=== PATIENT | female | born 1965 | race Caucasian/White ===

== ENCOUNTER 2018-04-17 07:44 | Emergency (ER) | payer OTHER ==
[~2018-04-17] VITALS: Ht 165.1 cm; Wt 68.0 kg
[~2018-04-17 07:44] MED LIST: ADULT LOW DOSE81 MG PO; NOHOMEMEDICATIONS
[2018-04-17] MEDS ORDERED: ADVIL200 M1 PO (07:53)
[2018-04-17 08:27] LABS: APTT 23.3 Seconds (25.0-31.3); PROTIME 9.7 Seconds (9.20-11.50)
[2018-04-17 08:32] LABS: ANION GAP 8 mmol/L (7-16); BUN 13 mg/dL (7-18); CALCIUM 8.2 mg/dL (8.5-10.1); CHLORIDE 106 mmol/L (98-107); CO2 26 mmol/L (21-32); CREATININE 0.8 mg/dL (0.6-1.3); GLUCOSE 92 mg/dL (70-99); POTASSIUM 3.3 mmol/L (3.5-5.1); SODIUM 140 mmol/L (136-145)
[2018-04-17 08:51] LABS: ABSOLUTE EOSINOPHILS 0.1 thou/uL (0.0-0.7); ABSOLUTE LYMPHOCYTES 2.6 thou/uL (0.8-5.3); ABSOLUTE MONOCYTES 0.5 thou/uL (0.0-1.2); ABSOLUTE NEUTROPHILS 5.5 thou/uL (1.6-8.1); BASOPHILS 0.3 %; EOSINOPHILS 0.7 %; HEMATOCRIT 41.1 % (37.0-47.0); HEMOGLOBIN 13.8 gm/dL (12.0-15.0); LYMPHOCYTES 30.1 %; MCH 33.1 pg (26.0-34.0); MCHC 33.5 g/dL (28.0-37.0); MCV 99.1 fL (80.0-100.0); MPV 8.5 fl. (7.2-11.1); NUCLEATED RBCS 0 /100WBC; PLATELET COUNT* 296 thou/uL (150-400); POLYS 62.9 %; RBC 4.15 mil/uL (4.20-5.00); RDW-CV 13.8 % (10.5-14.5); WBC 8.7 thou/uL (4.0-11.0)
[2018-04-17 08:52] LABS: ALBUMIN 3.2 g/dL (3.4-5.0); ALKALINE PHOSPHATASE 81 U/L (46-116); CK-MB MASS < 0.5 ng/mL (<0.5-3.6); LIPASE 174 U/L (73-393); NT-PRO BRAIN NAT PEPTIDE 133 pg/mL (<300); SGOT 13 U/L (15-37); SGPT 15 U/L (30-65); TOTAL BILIRUBIN 0.4 mg/dL (<0.1-1.0); TOTAL PROTEIN 7.1 g/dL (6.4-8.2); TROPONIN-I LEVEL <0.06 ng/mL (<0.06)
[2018-04-17 16:32] VITALS: BP 127/72
--- NOTE | 2018-04-18 09:37 | EKG ---
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
--- NOTE | 2018-04-19 16:15 | EXE ---
[place] [address] STRESS ECHOCARDIOGRAM Name: SANTIAGOTHEO Room: [facility]#: [id number] Admission: 04/17/18 Attend Phys: Discharge: 04/17/18 Date of : 61 Date of Service: 04/19/18 1614 Report #: [id number] THIS REPORT FOR: //name// APPROVED REPORT Study performed: 04/17/2018 15:32:34 Exam: Stress Echocardiogram Indication: Chest pain Patient Location: ER Stress Nurse: Crissy Suarez RN Supervising Physician: Elpidio Leonard MD Ht: 5 ft 5 in HR: 69 bpm BP: 132/79 mmHg Rhythm: NSR Medical History Cardiac Risk Factors: Smoking Procedure The patient underwent an Exercise Stress Test using the Esteban Protocol. Blood pressure, heart rate, and EKG were monitored. An Echocardiogram was performed by computer hardware technician in four stages in quad fashion. At peak stress, four selected images were obtained and placed side by side with resting images for comparison. Echo Enhancing Agent Indication: Endocardial border delineation Agent(s) / Amount(s) Used: Optison 8 cc Stress Test Details Stress Test: Exercise stress testing was performed using a Esteban protocol. HR Resting HR: 69 bpm Max Heart Rate (APMHR): 166 bpm Max HR Achieved: 167 bpm Target HR (85% APMHR): 141 bpm % of APMHR: 100 Recovery HR: 96 bpm HR response to stress: Normal HR response to stress BP Resting BP: 132/79 mmHg Max BP: 171/72 mmHg Recovery BP: 126/81 [place] [address] STRESS ECHOCARDIOGRAM Name: THEO SANTIAGO Room: [facility]#: [id number] Admission: 04/17/18 Attend Phys: Discharge: 04/17/18 Date of : 61 Date of Service: 04/19/18 1614 Report #: [id number] ECG Resting ECG: Sinus Rhythm Stress ECG: Sinus Rhythm ST Change: Normal Recovery ECG: Sinus Rhythm Recovery ST Change: Normal Clinical Reason for Termination: Maximal effort Stress Symptoms: Leg Fatigue Exercise duration: 6 min 19 sec Highest Stage Achieved: Stage 3: 3.4 mph at 14% grade. Exercise capacity: 7.53 METs Stress ECG Conclusion negative ecg Pre-Stress Echo The resting Echocardiogram showed normal left ventricular contractility with an estimated Ejection Fraction of about 50-55%. Post-Stress Echo 1. LV chamber size decreases. 2. LV contractility increases. 3. No new wall motion abnormality visualized. Conclusion Clinical Response: Non-ischemic Exercise Capacity: Below Average Stress ECG Response: Non-ischemic Stress Echo Images: Non-ischemic Negative stress echo at the level of exercise achieved, reduced functional capacity decreased the sensitivity of this study. Other Information Technically limited study due to poor endocardial definition. <Conclusion> [place] [address] STRESS ECHOCARDIOGRAM Name: THEO SANTIAGO Room: [facility]#: [id number] Admission: 04/17/18 Attend Phys: Discharge: 04/17/18 Date of : 61 Date of Service: 04/19/181613 Report #: [id number] Negative stress echo at the level of exercise achieved, reduced functional capacity decreased the sensitivity of this study. <ELECTRONICALLY SIGNED> By: Jt Joseph MD, FACC 04/19/181613 13 13 Jt Joseph MD, FACC /INF
== END 2018-04-17 16:32 | disposition home or self-care (01) ==
LOC: M.ERS 07:44
PROVIDERS: Emergency Medicine
DX: R07.89 Other chest pain (principal); Z90.49 Acquired absence of other specified parts of digestive tract; F17.210 Nicotine dependence, cigarettes, uncomplicated; Z88.2 Allergy status to sulfonamides; Z88.8 Allergy status to other drugs, medicaments and biological substances

== ENCOUNTER → 2018-07-06 | Outpatient (CLI) | payer OTHER ==
[~2018-07-06] MED LIST changes: +ADVIL200 M1 PO
--- NOTE | 2018-07-12 07:43 | PF ---
[address] [address] PULMONARY FUNCTION REPORT Name: THEO SANTIAGO Room: [facility]#: [id number] Admission: 07/06/18 Attend Phys: Fior Sanchez MD Discharge: Date of : 61 Report #: [id number] THIS REPORT FOR: //name// CC: Fior Sanchez REFERRING PHYSICIAN: Fior Sanchez M.D. TYPE OF STUDY: Pulmonary function test. SPIROMETRY: FEV1/FVC was 72% predicted. The FEV1 was 2.63 liters at 94% predicted. Forced vital capacity was 3.63 liters at 102% of predicted. Total lung capacity was 5.36 liters at 105% predicted. DLCO was 89% predicted. IMPRESSION: This pulmonary function test does not show evidence of obstructive or restrictive defect with normal DLCO. <ELECTRONICALLY SIGNED> By: Alannah Landers MD 07/12/18 0743 1320 205Greg Mccormick MD /nt
== END ==
LOC: M.PUL 06-30 13:00
DX: R06.02 Shortness of breath (principal); F17.290 Nicotine dependence, other tobacco product, uncomplicated

== ENCOUNTER 2021-09-01 17:43 | Emergency (ER) | payer OTHER ==
[~2021-09-01] VITALS: Ht 165.1 cm; Wt 56.7 kg
[2021-09-01 22:31] LABS: INFLUENZA A ANTIGEN Negative (Negative); INFLUENZA B ANTIGEN Negative (Negative)
[2021-09-01] MEDS ORDERED: ZOFRAN ODT4 MG PO (22:51)
[2021-09-01 23:04] VITALS: BP 114/74
== END 2021-09-01 23:04 | disposition home or self-care (01) ==
LOC: M.ERS 17:43
PROVIDERS: Physician Assistant
DX: R11.0 Nausea (principal); Z20.822 Contact with and (suspected) exposure to COVID-19; F17.210 Nicotine dependence, cigarettes, uncomplicated; Z90.49 Acquired absence of other specified parts of digestive tract; Z98.890 Other specified postprocedural states; Z79.899 Other long term (current) drug therapy; Z88.2 Allergy status to sulfonamides; Z88.8 Allergy status to other drugs, medicaments and biological substances